=== PATIENT | female | born 1995 | race African-American/Black ===

== ENCOUNTER 2016-07-11 08:04 | Emergency (ER) | payer MEDICAID ==
[~2016-07-11] VITALS: Ht 165.1 cm; Wt 74.0 kg
[2016-07-11 08:05] VITALS: BP 122/72; PULSE 90; RESP 16; TEMP 99.5; O2SAT 97
--- NOTE | 2016-07-11 08:12 | PD ---
HPI . sore throat x 2 days Chief Complaint: ENT Complaint Time Seen by Provider: 08:12 Travel History International Travel<30 days: No Contact w/Intl Traveler<30days: No Traveled to known affect area: No History of Present Illness HPI 21-year-old female with history of asthma here with complaints of a sore throat for 2 days. Patient tells me she has a history of strep throat and thinks that she may have the same issues today. She admits to sore throat mainly on the left side. She admits to difficulty swallowing, but denies any drooling or muffled speech. She also denies any fever or chills or other cold symptoms. PFSH Past Medical History Diminished Hearing: No Respiratory: Yes (asthma) Immunizations Current: Yes : 2 Para: 2 Social History Alcohol Use: No Tobacco Use: No Substance Use: No Allergies-Medications (Allergen,Severity, Reaction): Coded Allergies: No Known Allergies (Unverified , 07/11/16) Reported Meds & Prescriptions Reported Meds & Active Scripts Active Amoxicillin 500 Mg Tab 500 Mg PO BID Review of Systems General / Constitutional: No: Fever Eyes: No: Visual changes HENT: Positive: Sore Throat, No: Headaches Cardiovascular: No: Chest Pain or Discomfort Respiratory: No: Shortness of Breath Gastrointestinal: No: Abdominal Pain Genitourinary: No: Dysuria Musculoskeletal: No: Pain Skin: No Rash Neurologic: No: Weakness Psychiatric: No: Depression Endocrine: No: Polydipsia Hematologic/Lymphatic: No: Easy Bruising Physical Exam Narrative GENERAL: AAO x 3, no acute distress, Well-nourished, well-developed patient. SKIN: Warm and dry. No visible rashes or bruising. HEAD: Normocephalic and atraumatic. EYES: No scleral icterus. No injection or drainage. ENT: No nasal drainage noted. Mucous membranes pink. Airway patent. Moderate posterior pharynx erythema and edema left greater than right. No evidence of peritonsillar abscess. NECK: Supple, trachea midline. No JVD. Positive cervical chain lymphadenopathy. CARDIOVASCULAR: Regular rate and rhythm without murmurs, gallops, or rubs. RESPIRATORY: Breath sounds equal bilaterally. No accessory muscle use. No rhonchi or rales. GASTROINTESTINAL: visual inspection normal. EXTREMITIES: No cyanosis or edema. BACK: Nontender without obvious deformity. No CVA tenderness. PSYCH: AAO x 3, normal affect. Data Data Last Documented VS Vital Signs Date Time Temp Pulse Resp B/P Pulse Ox O2 Delivery O2 Flow Rate FiO2 07/11/16 08:05 99.5 90 16 122/72 97 Room Air [facility] Medical Decision Making Medical Screen Exam Complete: Yes Emergency Medical Condition: Yes Medical Record Reviewed: Yes (last seen for laceration) Differential Diagnosis Acute pharyngitis, acute sinusitis, less likely influenza Narrative Course 21-year-old female with history of asthma here with complaints of a sore throat for 2 days. Patient tells me she has a history of strep throat and thinks that she may have the same issues today. She admits to sore throat mainly on the left side. She admits to difficulty swallowing, but denies any drooling or muffled speech. She also denies any fever or chills or other cold symptoms. Patient seen and examined. She does have some moderate posterior pharynx erythema and edema mainly on the left side. There is no visible exudate. I will go ahead and treat her with amoxicillin for possibility of strep throat as it appears so. I discussed that I do not need to swab her as I am going to treat. She was understanding.. Discussed saltwater gargles. Follow-up with primary care provider. Patient verbalized understanding of instructions, questions were answered, and thanked me for their care. I advised them if their condition worsens, please return to the nearest emergency room for further care. Diagnosis Primary Impression: Acute pharyngitis Qualified Code: J02.9 - Acute pharyngitis, unspecified etiology Patient Instructions: General Instructions, Pharyngitis (ED) Departure Forms: Tests/Procedures, Work Release Enter return to work date: Jul 12, 2016 Additional Instructions: Please return to emergency department if your symptoms return or worsen. Follow up with your primary care provider. Take medications as prescribed. Take medications as prescribed. Try salt water gargles. Do not share utensils, toothbrush, etc. If you develop difficulty breathing, please go to the nearest emergency room. Med/Other Pt SpecificInfo: Prescription(s) given Scripts Amoxicillin 500 Mg [id number] Mg PO BID #20 TAB Ref 0 Prov:Georgie Jimenez MD 07/11/16 Disposition: 01 DISCHARGE HOME Condition: Stable Mangali,Maki PA Jul 11, 2016 08:12
[2016-07-11] MEDS ORDERED: AMOX500T PO (08:18)
== END 2016-07-11 08:35 | disposition home or self-care (01) ==
LOC: NEPK 08:04
DX: J02.9 Acute pharyngitis, unspecified (principal); J45.909 Unspecified asthma, uncomplicated
CPT/HCPCS: 99282

== ENCOUNTER 2016-07-14 13:35 | Observation (INO) | payer MEDICAID ==
[~2016-07-14] VITALS: Ht 180.3 cm; Wt 68.0 kg
[~2016-07-14 13:35] MED LIST: AMOX500T PO
[2016-07-14 13:37] VITALS: BP 129/71; PULSE 104; RESP 16; TEMP 99.9; O2SAT 98
--- NOTE | 2016-07-14 14:04 | PD ---
HPI . sore throat and now body aches Chief Complaint: ENT Complaint Time Seen by Provider: 14:04 Travel History International Travel<30 days: No Contact w/Intl Traveler<30days: No Traveled to known affect area: No History of Present Illness HPI 21-year-old female here with complaints of sore throat and now body aches. Patient was seen on July 11, 2016 by me and had some moderate posterior pharynx erythema with edema and no exudates. Today she tells me her sore throat has worsened and she is developing some body aches and chills. She has had difficulty eating and requesting IV fluids for hydration. Today on examination she has bilateral tonsillar edema and exudates. She is also c/o nausea and had some vomiting. She tells me there is a possibility of . PFSH Past Medical History Diminished Hearing: No Respiratory: Yes (asthma) Immunizations Current: Yes ?: Unknown : 2 Para: 2 Social History Alcohol Use: No Tobacco Use: No Substance Use: No Allergies-Medications (Allergen,Severity, Reaction): Coded Allergies: No Known Allergies (Unverified , 07/14/16) Reported Meds & Prescriptions Reported Meds & Active Scripts Active Amoxicillin 500 Mg Tab 500 Mg PO BID Review of Systems General / Constitutional: Positive: Chills, Other (body aches), No: Fever Eyes: No: Visual changes HENT: Positive: Sore Throat, No: Headaches Cardiovascular: No: Chest Pain or Discomfort Respiratory: No: Shortness of Breath Gastrointestinal: No: Abdominal Pain Genitourinary: No: Dysuria Musculoskeletal: No: Pain Skin: No Rash Neurologic: No: Weakness Psychiatric: No: Depression Endocrine: No: Polydipsia Hematologic/Lymphatic: No: Easy Bruising Physical Exam Narrative GENERAL: AAO x 3, no acute distress, Well-nourished, well-developed patient. SKIN: Warm and dry. No visible rashes or bruising. HEAD: Normocephalic and atraumatic. EYES: No scleral icterus. No injection or drainage. ENT: No nasal drainage noted. Mucous membranes pink. Airway patent. Bilateral posterior pharynx erythema, edema and exudates. TMs normal bilaterally NECK: Supple, trachea midline. No JVD. Positive cervical chain lymphadenopathy CARDIOVASCULAR: Regular rate and rhythm without murmurs, gallops, or rubs. RESPIRATORY: Breath sounds equal bilaterally. No accessory muscle use. No rhonchi or rales. GASTROINTESTINAL: Abdomen soft, non-tender, nondistended. EXTREMITIES: No cyanosis or edema. BACK: Nontender without obvious deformity. No CVA tenderness. PSYCH: AAO x 3, normal affect. Data Data Last Documented VS Vital Signs Date Time Temp Pulse Resp B/P Pulse Ox O2 Delivery O2 Flow Rate FiO2 07/14/16 13:37 99.9 104 16 129/71 98 Orders Iv Access Insert/Monitor (07/14/16 14:10) Ed Urine Pregnancytest Poc (07/14/16 14:10) Sodium Chlor 0.9% 1000 Ml Inj (Ns 1000 M (07/14/16 14:15) Basic Metabolic Panel (Bmp) (07/14/16 14:12) Complete Blood Count With Diff (07/14/16 14:12) Influenzae A/B Antigen (07/14/16 14:12) Promethazine (Phenergan) (07/14/16 14:45) Dexamethasone Inj (Decadron Inj) (07/14/16 14:45) Potassium Chloride Powder (Kcl Powder) (07/14/16 16:00) Ketorolac Inj (Toradol Inj) (07/14/16 16:00) Admit Order (Ed Use Only) (07/14/16 16:40) Labs Laboratory Tests Test 07/14/16 14:30 White Blood Count 6.1 TH/MM3 Red Blood Count 4.46 MIL/MM3 Hemoglobin 11.6 GM/DL Hematocrit 35.7 % Mean Corpuscular Volume 80.0 FL Mean Corpuscular Hemoglobin 25.9 PG Mean Corpuscular Hemoglobin 32.4 % Concent Red Cell Distribution Width 14.7 % Platelet Count 183 TH/MM3 Mean Platelet Volume 7.8 FL Neutrophils (%) (Auto) 65.7 % Lymphocytes (%) (Auto) 18.6 % Monocytes (%) (Auto) 15.1 % Eosinophils (%) (Auto) 0.3 % Basophils (%) (Auto) 0.3 % Neutrophils # (Auto) 4.0 TH/MM3 Lymphocytes # (Auto) 1.1 TH/MM3 Monocytes # (Auto) 0.9 TH/MM3 Eosinophils # (Auto) 0.0 TH/MM3 Basophils # (Auto) 0.0 TH/MM3 CBC Comment DIFF FINAL Differential Comment Sodium Level 136 MEQ/L Potassium Level 2.7 MEQ/L Chloride Level 99 MEQ/L Carbon Dioxide Level 28.5 MEQ/L Anion Gap 9 MEQ/L Blood Urea Nitrogen 7 MG/DL Creatinine 0.76 MG/DL Estimat Glomerular Filtration 116 ML/MIN Rate Random Glucose 86 MG/DL Calcium Level 8.4 MG/DL MDM Medical Decision Making Medical Screen Exam Complete: Yes Emergency Medical Condition: Yes Medical Record Reviewed: Yes Differential Diagnosis Exudative pharyngitis, influenza, sinusitis Narrative Course 21-year-old female here with complaints of sore throat and now body aches. Patient was seen on July 11, 2016 by me and had some moderate posterior pharynx erythema with edema and no exudates. Today she tells me her sore throat has worsened and she is developing some body aches and chills. She has had difficulty eating and requesting IV fluids for hydration. Today on examination she has bilateral tonsillar edema and exudates. She is also c/o nausea and had some vomiting. She tells me there is a possibility of . Patient seen and examined. She has exudative pharyngitis. She also has some flulike symptoms. Labs ordered as she had fever. Since she has been unable to eat we will order some fluids. Patient given Decadron and Phenergan. Laboratory Tests Test 07/14/16 14:30 White Blood Count 6.1 TH/MM3 Red Blood Count 4.46 MIL/MM3 Hemoglobin 11.6 GM/DL Hematocrit 35.7 % Mean Corpuscular Volume 80.0 FL Mean Corpuscular Hemoglobin 25.9 PG Mean Corpuscular Hemoglobin 32.4 % Concent Red Cell Distribution Width 14.7 % Platelet Count 183 TH/MM3 Mean Platelet Volume 7.8 FL Neutrophils (%) (Auto) 65.7 % Lymphocytes (%) (Auto) 18.6 % Monocytes (%) (Auto) 15.1 % Eosinophils (%) (Auto) 0.3 % Basophils (%) (Auto) 0.3 % Neutrophils # (Auto) 4.0 TH/MM3 Lymphocytes # (Auto) 1.1 TH/MM3 Monocytes # (Auto) 0.9 TH/MM3 Eosinophils # (Auto) 0.0 TH/MM3 Basophils # (Auto) 0.0 TH/MM3 CBC Comment DIFF FINAL Differential Comment Sodium Level 136 MEQ/L Potassium Level 2.7 MEQ/L Chloride Level 99 MEQ/L Carbon Dioxide Level 28.5 MEQ/L Anion Gap 9 MEQ/L Blood Urea Nitrogen 7 MG/DL Creatinine 0.76 MG/DL Estimat Glomerular Filtration 116 ML/MIN Rate Random Glucose 86 MG/DL Calcium Level 8.4 MG/DL Her potassium is 2.7. It was repleted. She is still feeling ill and complains of a headache. Toradol was administered. I've advised her that we will go ahead and admit her for overnight observation, especially with her low potassium. Patient was in agreement. Call placed for admitting physician. Case discussed with Dr. Willard. He will admit the patient for 23 hour observation. Patient verbalized understanding of instructions, questions were answered, and thanked me for their care. I advised them if their condition worsens, please return to the nearest emergency room for further care. Diagnosis Primary Impression: Nausea & vomiting Qualified Code: R11.2 - Non-intractable vomiting with nausea, unspecified vomiting type Additional Impressions: Hypokalemia Exudative pharyngitis Admitting Information Admitting Physician Requests: Admit Condition: Stable Maki Zuñiga Jul 14, 2016 14:04
[2016-07-14] MEDS ORDERED: SODIUM CHLOR 0.9% 1000 ML INJ 1,000 ML IV ONE (14:15)
[2016-07-14 14:45] LABS: BASOPHIL % 0.3 % (0.0-2.0); EOSINOPHIL % 0.3 % (0.0-4.0); HEMATOCRIT 35.7 % (35.0-46.0); HEMO FLAGS DIFF FINAL; LYMPH % 18.6 % (9.0-44.0); LYMPHOCYTE # 1.1 TH/MM3 (1.0-4.8); MEAN CORPUSCULAR HEMOGLOBIN 25.9 PG (27.0-34.0); MEAN CORPUSCULAR HGB CONC 32.4 % (32.0-36.0); MONO % 15.1 % (0.0-8.0); NEUT % 65.7 % (16.0-70.0); PLATELET COUNT 183 TH/MM3 (150-450); RED BLOOD COUNT 4.46 MIL/MM3 (4.00-5.30); RED CELL DISTRIBUTION WIDTH 14.7 % (11.6-17.2); WHITE BLOOD COUNT 6.1 TH/MM3 (4.0-11.0)
[2016-07-14] MEDS ORDERED: PROMETHAZINE HCL 25 MG TAB PO ONE (14:45)
[2016-07-14] MEDS ORDERED: DEXAMETHASONE SOD PHOS 4 MG/ML VIAL IV PUSH ONE (14:45)
[2016-07-14 15:11] LABS: BICARBONATE 28.5 MEQ/L (21.0-32.0)
[2016-07-14 15:33] LABS: POTASSIUM 2.7 MEQ/L (3.5-5.1)
[2016-07-14] MEDS ORDERED: POTASSIUM CHLORIDE 20 MEQ PWD PACKET PO ONE (16:00)
[2016-07-14] MEDS ORDERED: KETOROLAC TROMETHAMINE 60 MG/2 ML (IM) VIAL IM ONE (16:00)
--- NOTE | 2016-07-14 16:54 | HHI.HP ---
. [facility] No Primary Care Physician Admission Diagnosis Vomiting and Hypokalemia Diagnoses: Chief Complaint: Body aches, sore throat, n/v Travel History International Travel<30 Days: No Contact w/Intl Traveler <30 Da: No Traveled to Known Affected Are: No History of Present Illness Ms. Montana is a 21-year-old female with a known history of asthma who presents to the ED with continued complaints of sore throat, body aches, headache and poor appetite. Patient had recently presented to the ED on 07/11 with the same symptoms and sent home on amoxicillin. Patient has taken three doses of the antibiotic but stopped taking it due to nausea and vomiting. Patient has had minimal intake the last couple days except for water. She does admit to associated fever and chills. Denies cough or shortness of breath. Denies diarrhea. Influenza swab performed in ED negative. Review of Systems Constitutional: COMPLAINS OF: Diaphoretic episodes, Fever, Chills Ears, nose, mouth, throat: COMPLAINS OF: Throat pain Musculoskeletal: COMPLAINS OF: Muscle aches Neurologic: COMPLAINS OF: Headache Except as stated in HPI: all other systems reviewed are Neg Past Family Social History Past Medical History Asthma Past Surgical History None Reported Medications Amoxicillin 500 Mg Tab 500 Mg PO BID Allergies: Coded Allergies: No Known Allergies (Unverified , 07/14/16) Family History Maternal medical history significant for hypertension. Patient denies any significant family history of cancer or pulmonary disease. Social History Patient lives at home with her two children, ages 1 and 3. Does admit to smoking tobacco occasionally. Patient does drink alcohol occasionally. Does admit to smoking marijuana last week, and does smoke on a weekly basis. Physical Exam Vital Signs Vital Signs Date Time Temp Pulse Resp B/P Pulse Ox O2 Delivery O2 Flow Rate FiO2 07/14/16 13:37 99.9 104 16 129/71 98 Physical Exam GENERAL: Well-nourished, well-developed patient in NAD. SKIN: Warm and dry. No rash. HEENT: Throat with some erythema. Normocephalic. Atraumatic. Pupils equal and round. No scleral icterus. Mucous membranes pink and moist. NECK: Supple. Trachea midline. No lymphedema noted. CARDIOVASCULAR: Regular rate and rhythm. S1, S2 noted. No murmur appreciated. RESPIRATORY: No accessory muscle use. Clear to auscultation. Breath sounds equal bilaterally. GASTROINTESTINAL: Abdomen soft, non-tender, nondistended. Normoactive bowel sounds x4. MUSCULOSKELETAL: No obvious deformities. Extremities without clubbing, cyanosis , or edema. NEUROLOGICAL: Awake and alert. No obvious cranial nerve deficits. Motor grossly within normal limits. 5/5 muscle strength in bilateral upper and lower extremities. Normal speech. PSYCHIATRIC: Appropriate mood and affect; insight and judgment normal. Laboratory Laboratory Tests Test 07/14/16 14:30 White Blood Count 6.1 Red Blood Count 4.46 Hemoglobin 11.6 Hematocrit 35.7 Mean Corpuscular Volume 80.0 Mean Corpuscular Hemoglobin 25.9 Mean Corpuscular Hemoglobin 32.4 Concent Red Cell Distribution Width 14.7 Platelet Count 183 Mean Platelet Volume 7.8 Neutrophils (%) (Auto) 65.7 Lymphocytes (%) (Auto) 18.6 Monocytes (%) (Auto) 15.1 Eosinophils (%) (Auto) 0.3 Basophils (%) (Auto) 0.3 Neutrophils # (Auto) 4.0 Lymphocytes # (Auto) 1.1 Monocytes # (Auto) 0.9 Eosinophils # (Auto) 0.0 Basophils # (Auto) 0.0 CBC Comment DIFF FINAL Differential Comment Sodium Level 136 Potassium Level 2.7 Chloride Level 99 Carbon Dioxide Level 28.5 Anion Gap 9 Blood Urea Nitrogen 7 Creatinine 0.76 Estimat Glomerular Filtration 116 Rate Random Glucose 86 Calcium Level 8.4 Date/Time Procedure Status Source Growth 07/14/16 14:37 Influenza Types A,B Antigen (JACKY) - Final Complete Nasal Washing NEGATIVE FOR FLU A AND B ANTIGEN.... Result Diagram: 07/14/16 1430 07/14/16 1430 Assessment and Plan Problem List: (1) Hypokalemia ICD Code: E87.6 Status: Acute (2) Acute pharyngitis ICD Code: J02.9 Status: Acute Assessment and Plan Ms. Montana is a 21-year-old female with a known history of asthma who presents to the ED with continued complaints of sore throat, body aches, headache and poor appetite. Patient had recently presented to the ED on 07/11 with the same symptoms and sent home on amoxicillin. Since then patient has not felt any improvement and has not been able to tolerate anything PO with associated nausea and vomiting. Acute Pharyngitis: Continue previously prescribed amoxicillin 500 mg BID. Influenza swab negative. Control pain, acetaminophen. Monitor fever. Hydrate. Hypokalemia secondary to nausea and vomiting: Will replace potassium PO. Place on IVF Ns 20 K @ 84 ml/hr. BMP in am. Encourage intake as tolerated, full liquid diet. DVT prophylaxis: SCDs Written by Cassandra Reyes, acting as scribe for Dr. Willard on 07/14/16 at 17:45 This note was transcribed by scribe Cassandra Reyes. I, Dr. Law Willard personally performed the history, physical exam, and medical decision making; and confirmed the accuracy of the information in the transcribed note. Authenticated by Dr. Law Willard on 07/14/16 at 17:45.. . Code Status Full code Discussed Condition With Dr. Willard, Patient Cassandra Reyes Jul 14, 2016 16:54 Law Willard MD Jul 14, 2016 18:28
[2016-07-14 17:10] VITALS: BP 118/59; PULSE 104; RESP 18; TEMP 99.3; O2SAT 96
[2016-07-14] MEDS ORDERED: ONDANSETRON HCL 4 MG/2 ML VIAL IVP PRN (17:45)
[2016-07-14] MEDS ORDERED: ACETAMINOPHEN 325 MG TAB PO PRN ×2 (17:45→18:00)
[2016-07-14] MEDS: DOCUSATE SODIUM 100 MG CAP PO SCH (18:58)
[2016-07-14] MEDS ORDERED: NS + KCL 20 MEQ INJ 1,000 ML IV SCH (19:00)
[2016-07-14] MEDS: AMOXICILLIN (TRIHYDRATE) 500 MG CAP PO SCH (21:47)
[2016-07-14 21:51] VITALS: BP 93/54; PULSE 59; RESP 16; TEMP 97.9; O2SAT 97
[2016-07-15 04:00] VITALS: BP 92/68; PULSE 64; RESP 18; TEMP 97; O2SAT 98
[2016-07-15 04:43] LABS: AUTOMATED NEUTROPHIL # 3.8 TH/MM3 (1.8-7.7); BASOPHIL % 0.1 % (0.0-2.0); EOSINOPHIL % 0.1 % (0.0-4.0); HEMATOCRIT 33.4 % (35.0-46.0); HEMO FLAGS DIFF FINAL; LYMPH % 18.6 % (9.0-44.0); MEAN CELL VOLUME 78.6 FL (80.0-100.0); MEAN CORPUSCULAR HEMOGLOBIN 26.8 PG (27.0-34.0); MEAN CORPUSCULAR HGB CONC 34.1 % (32.0-36.0); NEUT % 67.2 % (16.0-70.0); PLATELET COUNT 201 TH/MM3 (150-450); RED BLOOD COUNT 4.24 MIL/MM3 (4.00-5.30); RED CELL DISTRIBUTION WIDTH 14.4 % (11.6-17.2); WHITE BLOOD COUNT 5.6 TH/MM3 (4.0-11.0)
[2016-07-15 05:23] LABS: BICARBONATE 25.4 MEQ/L (21.0-32.0); POTASSIUM 3.7 MEQ/L (3.5-5.1)
[2016-07-15] MEDS: DOCUSATE SODIUM 100 MG CAP PO SCH (05:45)
[2016-07-15 08:32] VITALS: BP 115/55; PULSE 69; RESP 18; TEMP 97.7; O2SAT 97
[2016-07-15] MEDS: AMOXICILLIN (TRIHYDRATE) 500 MG CAP PO SCH (09:47)
[2016-07-15 11:14] VITALS: BP 103/62; PULSE 70; RESP 18; TEMP 98.6; O2SAT 97
--- NOTE | 2016-07-15 11:29 | HHI.PR ---
Subjective Remarks Follow up acute pharyngitis/hypokalemia Objective Vitals Vital Signs Date Time Temp Pulse Resp B/P Pulse Ox O2 Delivery O2 Flow Rate FiO2 07/15/16 11:14 98.6 70 18 103/62 97 07/15/16 08:32 97.7 69 18 115/55 97 07/15/16 04:00 97.0 64 18 92/68 98 07/14/16 21:51 97.9 59 16 93/54 97 07/14/16 17:10 99.3 104 18 118/59 96 Room Air 07/14/16 13:37 99.9 104 16 129/71 98 Result Diagram: [id number]/15/[id number] Objective Remarks GENERAL: NAD SKIN: Warm and dry. HEAD: Normocephalic. EYES: No scleral icterus. No injection or drainage. NECK: Supple, trachea midline. No JVD or lymphadenopathy. CARDIOVASCULAR: Regular rate and rhythm without murmurs, gallops, or rubs. RESPIRATORY: Breath sounds equal bilaterally. No accessory muscle use. GASTROINTESTINAL: Abdomen soft, non-tender, nondistended. MUSCULOSKELETAL: No cyanosis, or edema. BACK: Nontender without obvious deformity. No CVA tenderness. A/P Problem List: (1) Hypokalemia ICD Code: E87.6 Status: Acute (2) Acute pharyngitis ICD Code: J02.9 Status: Acute Assessment and Plan 21-year-old female with Acute Pharyngitis: Improving with amoxicillin 500 mg BID. Influenza swab negative. Control pain, acetaminophen. Monitor fever. Hydrate. Hypokalemia secondary to nausea and vomiting: Resolved with gentle IVF Ns 20 K @ 84 ml/hr. BMP in am. DVT prophylaxis: SCDs Discharge Planning Discharge patient to home Condition on discharge: Improved Regular Diet as tolerated Ad Lucia activity Rx written: None Follow-up with primary care physician in one week Law Willard MD Jul 15, 2016 11:21
== END 2016-07-15 16:37 | disposition home or self-care (01) ==
LOC: NEPD 13:35 → NEDA 16:42 → NEPGCP 18:38
PROVIDERS: ADMIT Hospitalist; ATTEND Hospitalist
DX: J02.9 Acute pharyngitis, unspecified (principal); R11.2 Nausea with vomiting, unspecified; E87.6 Hypokalemia; J45.909 Unspecified asthma, uncomplicated; F17.200 Nicotine dependence, unspecified, uncomplicated
CPT/HCPCS: 80048; 84703; 85025; 87804; 96361; 96374; 96375; 99284; G0378; J1100; J1885; J3480; J7030; Q0169